=== PATIENT | female | born 1965 ===

== ENCOUNTER → 2022-11-14 | Outpatient (CLI) | payer SELFPAY ==
[2022-11-14 17:42] LABS: BASOPHILS ABSOLUTE AUTO 0.03 K/mm3 (0.00-0.23); BASOPHILS PERCENT AUTO 1 % (0-2); EOSINOPHILS ABSOLUTE AUTO 0.16 K/mm3 (0.00-0.68); EOSINOPHILS PERCENT AUTO 3 % (0-6); Hematocrit 42.1 % (33.0-51.0); Hemoglobin 13.8 g/dL (11.5-16.0); IMMATURE GRAN ABSOLUTE AUTO 0.01 K/mm3 (0.00-0.10); IMMATURE GRAN PERCENT AUTO 0 % (0-1); LYMPHOCYTES ABSOLUTE AUTO 1.85 K/mm3 (0.84-5.20); LYMPHOCYTES PERCENT AUTO 34 % (21-46); MONOCYTES ABSOLUTE AUTO 0.36 K/mm3 (0.16-1.47); MONOCYTES PERCENT AUTO 7 % (4-13); Mean Corpuscular HGB 31.5 pg (26.0-34.0); Mean Corpuscular HGB Conc 32.8 g/dL (31.5-36.5); Mean Corpuscular Volume 96 fL (80-100); Mean Platelet Volume 11.5 fL (9.1-12.4); NEUTROPHILS ABSOLUTE AUTO 3.08 K/mm3 (1.96-9.15); NEUTROPHILS PERCENT AUTO 56 % (41-73); Platelet Count 232 K/mm3 (150-400); RDW Coefficient Variation 12.1 % (11.7-14.2); RDW Standard Deviation 43.1 fL (35.1-46.3); Red Blood Cell Count 4.38 M/mm3 (3.80-5.20); White Blood Cell Count 5.49 K/mm3 (4.00-11.30)
[2022-11-14 17:56] LABS: Ferritin, Serum 99 ng/mL (8-252); Iron Serum 125 ug/dL (50-170); Total Iron Binding Capacity 315 ug/dL (250-450)
[2022-11-14 17:57] LABS: CHOL/HDL RATIO 5.2; Cholesterol 228 mg/dL (50-200); HDL Cholesterol 44 mg/dL (>39); LDL/HDL RATIO 3.4; Low Density Lipoprotein Chol 149 mg/dL (0-110); Percent Saturation 39.7 % (15.0-50.0); Triglycerides 174 mg/dL (30-160); Very Low Density Lipoprot Chol 34 mg/dL (6-32)
== END ==
LOC: LAB 13:16 → LAB SHORT 13:16
PROVIDERS: Family Medicine
DX: E61.1 Iron deficiency (principal); E78.1 Pure hyperglyceridemia
CPT/HCPCS: 80061; 82728; 83036; 83540; 83550; 85025